=== PATIENT | male | born 1955 | race Caucasian/White ===

== ENCOUNTER 2019-10-12 23:33 | Emergency (ER) | payer MEDICAID, OTHER ==
[~2019-10-12] VITALS: Ht 190.5 cm; Wt 103.0 kg
[2019-10-13] MEDS ORDERED: SODIUM CHLORIDE 0.9% 1,000 ML IV ONE (01:30)
[2019-10-13 01:43] LABS: Basophils # (auto) 0 uL; Basophils % (auto) 0.6 % (0.0-2.0); Eosinophils # (auto) 0.2 uL; Eosinophils % (auto) 4.9 % (0.0-7.0); Hematocrit 40.8 % (41.0-53.0); Hemoglobin 13.2 g/dL (13.5-17.5); Lymphocytes # (auto) 2.1 uL; Lymphocytes % (auto) 42.7 % (10.0-50.0); Mean Corpuscular Hemoglobin 30.8 pg (28.0-32.0); Mean Corpuscular Hgb Conc. 32.2 g/dL (32.0-36.0); Mean Corpuscular Volume 95.5 fL (80.0-100.0); Monocytes # (auto) 0.5 uL; Monocytes % (auto) 9.4 % (0.0-12.0); Neutrophils # (auto) 2.1 uL; Neutrophils % (auto) 42.4 % (37.0-80.0); Nucleated Red Blood Cells % 0.3 %; Platelet Count (auto) 232 10^3/uL (140-450); Red Blood Cells 4.27 10^6/uL (4.5-5.90); Red Cell Distribution Width 13.8 % (11.8-14.3); White Blood Cell 4.9 10^3/uL (4.4-10.8)
[2019-10-13 02:00] LABS: Albumin 3.2 g/dL (3.4-5.0); Anion Gap 6 (5-15); Blood Urea Nitrogen 17 mg/dL (7-18); Carbon Dioxide 28 mmol/L (21-32); Chloride 106 mmol/L (98-107); Glucose 117 mg/dL (74-106); Potassium 3.9 mmol/L (3.5-5.1); Sodium 140 mmol/L (136-145)
[2019-10-13 02:02] LABS: Alanine Aminotransferase 13 U/L (16-61); Aspartate Aminotransferase 22 U/L (15-37); GFR African American 97 mL/min; GFR Non-African American 80 mL/min
[2019-10-13 02:06] LABS: Alkaline Phosphatase 120 U/L (45-117); Bilirubin, Total 0.2 mg/dL (0.2-1.0); Total Protein 7.1 g/dL (6.4-8.2)
[2019-10-13] MEDS ORDERED: PROMETHAZINE W/CODEINE 5 ML ORAL SYRUP PO ONE (03:30)
[2019-10-13 03:36] LABS: Alcohol, Urine < 3.0 mg/dL (0-5); Amphetamine Screen, Urine NEGATIVE (NEGATIVE); Barbiturate Scree,Urine NEGATIVE (NEGATIVE); Benzodiazephine Screen, Urine NEGATIVE (NEGATIVE); Cannabinoid Screen, Urine NEGATIVE (NEGATIVE); Cocaine Screen, Urine NEGATIVE (NEGATIVE); Opiate Scree,Urine NEGATIVE (NEGATIVE); Phencyclidine Screen, Urine NEGATIVE (NEGATIVE)
[2019-10-13 04:34] VITALS: BP 132/76
== END 2019-10-13 04:34 | disposition left against medical advice (07) ==
LOC: EDBD 23:33 → ER 23:33 → EDSEX 23:33 → ER 10-13 04:34
DX: R07.89 Other chest pain (principal); R53.1 Weakness; R53.83 Other fatigue; R42 Dizziness and giddiness; T50.905A Adverse effect of unspecified drugs, medicaments and biological substances, initial encounter; Z88.8 Allergy status to other drugs, medicaments and biological substances; Y92.89 Other specified places as the place of occurrence of the external cause
CPT/HCPCS: 36415; 70450; 71045; 80053; 80307; 84484; 85025; 93005; 96360; 99284; J7030